=== PATIENT | female | born 1965 | race Caucasian/White ===

== ENCOUNTER → 2016-10-12 | Outpatient (CLI) | payer MEDICARE, MEDICAID ==
[2016-10-12 20:12] VITALS: BP 125/87
== END ==
LOC: MHUC 19:42
PROVIDERS: ATTEND Physician Assistant Medical
DX: R11.0 Nausea (principal)
CPT/HCPCS: 99213

== ENCOUNTER → 2016-10-15 | Outpatient (CLI) | payer MEDICARE, MEDICAID ==
[2016-10-15 15:18] LABS: ALBUMIN 4.5 g/dL (3.4-5.0); ALKALINE PHOSPHATASE 97 U/L (38-126); AMYLASE* 42 U/L (25-115); ANION GAP 16.2 MEQ/L (3-15); BUN/CREATININE RATIO 23 (10-20); CALCULATED IONIZED CALCIUM 4.4 mg/dL (3.8-4.6); LIPASE* 86 U/L (23-300); TOTAL PROTEIN 7.4 g/dL (6.4-8.5)
[2016-10-15 15:33] LABS: BASOPHILS % (AUTO) 0 % (0-2); EOSINOPHILS # (AUTO) 0.1 10^3uL; EOSINOPHILS % (AUTO) 1 % (0-4); LYMPHOCYTES # (AUTO) 2.3 X10^3; MEAN CORPUSCULAR HEMOGLOBIN 27.3 PG (26.0-34.0); MEAN CORPUSCULAR HGB CONC 34.4 g/dL (31.0-37.0); MEAN PLATELET VOLUME 11.3 FL (6.0-9.5); MONOCYTES # (AUTO) 0.8 X10^3; MONOCYTES % (AUTO) 6 % (3-11); NEUTROPHILS # (AUTO) 9.4 X10^3; NEUTROPHILS % (AUTO) 75 % (51-67); PLATELET COUNT 260 10^3uL (150-450); WHITE BLOOD COUNT 12.56 10^3uL (4.0-11.0)
[2016-10-15 15:34] LABS: BILIRUBIN,URINE Negative (Negative); GLUCOSE, URINE (UA) Negative (Negative); LEUKOCYTE ESTERASE ,URINE Negative (Negative); UROBILINOGEN,URINE 0.2 mg/dL (0.2-1.0)
--- NOTE | 2016-10-15 15:40 | Diagnostic Imaging Report ---
PROCEDURE: CT abdomen and pelvis without contrast. TECHNIQUE: Multiple contiguous axial images were obtained through the abdomen and pelvis without the use of intravenous contrast. INDICATION: Right lower quadrant and bladder pain. COMPARISON STUDY: None. FINDINGS: The lung bases are clear. The liver, gallbladder, spleen, pancreas, adrenal glands, and kidneys appear normal. No renal calculi or hydronephrosis is present. There is no inflammation around the appendix. Bowel loops demonstrate a few diverticula without inflammation. The uterus is absent. Urinary bladder is decompressed. No ascites, free air, or abnormal adenopathy. No inflammatory changes are present. There are no hernias. The osseous structures demonstrate some mild degenerative changes. IMPRESSION: There is mild diverticulosis. No acute findings are present. Dictated by: Dictated on workstation # [id number]
[2016-10-15 15:43] LABS: CLARITY,URINE Slightly Cloudy; COLOR,URINE Dark Yellow
[2016-10-15 15:44] LABS: MEAN CORPUSCULAR VOLUME 79 FL (80-100)
[2016-10-15 15:45] LABS: RBC,URINE None Seen /HPF; URINE CENTRIFUGED VOLUME 12 mL
--- NOTE | 2016-10-15 18:10 | Diagnostic Imaging Report ---
INDICATION: Constipation. TECHNIQUE: 2 supine view of the abdomen 2:55 PM CORRELATION STUDY: None FINDINGS: Bowel gas pattern has a nonobstructive appearance. There is mild severity fecal retention particularly with disproportionate proximal colon fecal loading. No evidence to suggest a large fecal impaction. Mild multilevel degenerative changes present disproportionately greater at L5-S1 level. IMPRESSION: Mild severity fecal retention without evidence for large fecal impaction or obstruction. Dictated by: Dictated on workstation # [id number]
== END ==
LOC: RAD 14:23
PROVIDERS: ATTEND Family Medicine
DX: K59.01 Slow transit constipation (principal); R10.817 Generalized abdominal tenderness; R10.2 Pelvic and perineal pain; R79.89 Other specified abnormal findings of blood chemistry; D50.8 Other iron deficiency anemias; N39.0 Urinary tract infection, site not specified; K80.00 Calculus of gallbladder with acute cholecystitis without obstruction; E03.4 Atrophy of thyroid (acquired)
CPT/HCPCS: 36415; 74000; 74176; 80053; 81003; 81015; 82150; 82977; 83690; 84436; 84443; 85025

== ENCOUNTER → 2016-10-19 | Outpatient (CLI) | payer MEDICARE, MEDICAID ==
--- NOTE | 2016-10-19 08:49 | Diagnostic Imaging Report ---
PROCEDURE: US abdomen complete. TECHNIQUE: Multiple real-time grayscale images were obtained over the abdomen in various projections. INDICATION: Right upper quadrant and pelvic pain AVAILABLE COMPARISONS: None The liver is of normal size. It has mild steatosis. The gallbladder is negative. The bile ducts are not dilated. Common bile duct diameter is 2 mm. The pancreas cannot be adequately seen for assessment. The aorta and inferior vena cava are negative. Both kidneys are of normal size and echogenicity. The spleen is unremarkable. No free fluid is identified. There is no significant amount of free fluid. IMPRESSION: 1. Mild hepatic steatosis. Otherwise unremarkable study. Dictated by: Dictated on workstation # [id number]
--- NOTE | 2016-10-19 09:22 | Diagnostic Imaging Report ---
PROCEDURE: US PELVIC (NON OB) TECHNIQUE: Multiple real-time grayscale images were obtained over the pelvis in various projections transabdominally. IMPRESSION: Pelvic pain. AVAILABLE COMPARISONS: No prior ultrasound. Patient had CT of the abdomen and pelvis on 10/15/2016 Uterus is surgically absent. Vaginal cuff region is unremarkable. No ovary could be identified. No free fluid is seen. IMPRESSION: 1. Status post hysterectomy. Ovaries could not be identified. No abnormality is identified. Dictated by: Dictated on workstation # [id number]
== END ==
LOC: RAD 07:42
PROVIDERS: ATTEND Family Medicine
DX: R10.2 Pelvic and perineal pain (principal); R10.817 Generalized abdominal tenderness; K76.0 Fatty (change of) liver, not elsewhere classified; Z90.710 Acquired absence of both cervix and uterus
CPT/HCPCS: 76700; 76856